=== PATIENT | female | born 1935 | race Native Hawaiian/Other Pacific Islander ===

== ENCOUNTER 2018-12-11 15:58 | Emergency (ER) | payer OTHER ==
[~2018-12-11] VITALS: Ht 162.6 cm; Wt 65.8 kg
[2018-12-11 16:10] LABS: PLATELET COUNT 195 K/uL (152-353)
[2018-12-11 16:20] LABS: POTASSIUM 4.3 mmol/L (3.6-5.2)
[2018-12-11 16:27] VITALS: BP 133/53; TEMP 97
[2018-12-11] MEDS ORDERED: TYLENOL325 MG PO (21:09)
[2018-12-11] MEDS ORDERED: FURO40TA93 PO (21:17)
[2018-12-11] MEDS ORDERED: LAMICTAL25 MG PO (21:19)
[2018-12-11] MEDS ORDERED: LOSA50TA PO (21:21)
[2018-12-11] MEDS ORDERED: METF500T PO (21:24)
[2018-12-11] MEDS ORDERED: METO50TA63 PO (21:28)
[2018-12-11] MEDS ORDERED: MIRALAX3350 N1 PO (21:31)
[2018-12-11] MEDS ORDERED: RISP0.5T2 PO (21:32)
[2018-12-11] MEDS ORDERED: CRESTOR20 MG PO (21:33)
== END 2018-12-11 16:35 | disposition other institution (70) ==
LOC: ED 15:58
PROVIDERS: Emergency Medicine
DX: F28 Other psychotic disorder not due to a substance or known physiological condition (principal); Z04.6 Encounter for general psychiatric examination, requested by authority
CPT/HCPCS: 80053; 85027; 93005; 99283